=== PATIENT | female | born 1960 | race Caucasian/White ===

== ENCOUNTER 2022-09-24 00:10 | Emergency (ER) | payer BC ==
[2022-09-24] MEDS ORDERED: Cephalexin 500 MG Cap PO STA (01:13)
== END 2022-09-24 01:42 | disposition home or self-care (01) ==
LOC: JD.ED 00:10
DX: R04.0 Epistaxis (principal); Z86.16 Personal history of COVID-19
CPT/HCPCS: 30905; 99283; A9270; C9046; 30901

== ENCOUNTER 2024-05-25 18:16 | Emergency (ER) | payer BC ==
[2024-05-25 19:48] LABS: BASOPHILS ABSOLUTE AUTO 0.1 K/mm3 (0.0-0.2); BASOPHILS PERCENT AUTO 0.8 % (0.0-1.0); EOSINOPHILS PERCENT AUTO 0.4 % (0.0-6.0); HEMATOCRIT 42.5 % (37.0-47.0); HEMOGLOBIN 14.5 gm/dl (12.0-16.0); IMMATURE GRAN ABSOLUTE AUTO 0.01 K/mm3 (0.00-0.05); IMMATURE GRAN PERCENT AUTO 0.1 % (0.0-0.4); LYMPHOCYTES ABSOLUTE AUTO 2.2 K/mm3 (1.0-4.8); LYMPHOCYTES PERCENT AUTO 28.4 % (24.0-44.0); MEAN CORPUSCULAR HEMOGLOBIN 30.1 pg (28.0-32.0); MEAN CORPUSCULAR HGB CONC 34.1 g/dl (32.0-36.0); MEAN CORPUSCULAR VOLUME 88.4 fl (83.0-99.0); MEAN PLATELET VOLUME 8.8 fl (9.4-12.3); MONOCYTES ABSOLUTE AUTO 0.6 K/mm3 (0.0-0.8); MONOCYTES PERCENT AUTO 8.3 % (0.0-8.0); NEUTROPHILS ABSOLUTE AUTO 4.8 K/mm3 (1.8-7.7); PLATELET COUNT,PLT 288 K/mm3 (150-400); RED BLOOD CELL COUNT 4.81 M/mm3 (4.10-5.30); WHITE BLOOD CELL COUNT,WBC 7.74 K/mm3 (3.9-11.3)
[2024-05-25 20:12] LABS: ANION GAP 17.6 (5-15); CALCIUM 9.7 mg/dL (8.5-10.1); CREATININE 0.6 mg/dL (0.55-1.02); EST CRCL DRUG DOSING (CG) 90.9 mL/min; POTASSIUM,K 3.6 mEq/L (3.5-5.1)
[2024-05-25 20:37] LABS: APPEARANCE,URINE CLEAR (Clear); BILIRUBIN,URINE NEGATIVE (Negative); COLOR,URINE YELLOW (Yellow); GLUCOSE,URINE NEGATIVE (Negative); KETONES,URINE 2+ (Negative); LEUKOCYTE ESTERASE,URINE NEGATIVE (Negative); NITRITE,URINE NEGATIVE (Negative); OCCULT BLOOD,URINE NEGATIVE (Negative); PROTEIN,URINE NEGATIVE (Negative); UROBILINOGEN,URINE 0.2 (0.2-1.0)
[2024-05-25 21:24] LABS: BACTERIA,URINE FEW /hpf (FEW); MUCUS,URINE FEW /hpf (FEW); RBC,URINE 0-5 /hpf (0-5); WBC,URINE 0-5 /hpf (0-5)
== END 2024-05-25 21:14 | disposition home or self-care (01) ==
LOC: JD.ED 18:16
DX: I10 Essential (primary) hypertension (principal); Z86.16 Personal history of COVID-19
CPT/HCPCS: 36415; 71045; 71045-26; 80048; 81001; 84484; 85025; 93005; 93010; 99283; 99284